=== PATIENT | female | born 1945 | race Caucasian/White ===

== ENCOUNTER → 2017-03-02 | Outpatient (CLI) | payer MEDICARE, BC ==
[~2017-03-02] MED LIST: FLEXERIL10 MG PO; NAPROSYN500 MG PO; PRILOSEC20 M1 PO
--- NOTE | ~2017-03-02 | CT57 ---
[facility] A Service of [facility] & [facility] RADIOLOGY TEXT RESULTS PATIENT: INDIA MICHAELS LOCATION: [facility] : 47 UNIT #: [id number] AGE: [address]: Robert Borges MD SEX: F ORDER DR: [id number] [facility] [address] [place], [place] [address] [id number] O MR#: [id number] Acc #: [id number] NAME: INDIA MICHAELS : 1945 SEX: F STUDY DATE/TIME: 03/02/2017 13:00 UNIT: [facility] ROOM: STUDY DESCRIPTION: CT Chest Wo Cont Attending Physician: Robert Borges M.D. Referring Physician: Robert Borges M.D. Ordering Physician: Robert Borges M.D. Primary Care Physician: Fernando Santiago M.D. MEDICAL IMAGING REPORT This report is preliminary unless electronic signature is present EXAM CT of the chest without contrast INDICATION Chest pain and shortness of breath, COPD, followup pulmonary nodule. TECHNIQUE CT of the chest was performed without contrast. Coronal and sagittal reformatted images were obtained. Comparison of 09/01/2016 and 04/21/2016. This CT exam was performed with one or more of the following radiation dose reduction techniques: automatic exposure control, adjustment of mA and/or kV according to patient size, and iterative reconstruction. FINDINGS There is underlying emphysema. There is a stable tiny 4 mm nodule in the inferior aspect of the right upper lobe. There are curvilinear bands of scarring/atelectasis in the base of the right lung. No new nodules. No airspace consolidation. Stable thyroid nodules. Aberrant origin of the right subclavian artery. No lymphadenopathy. Coronary artery calcification. No pleural effusion. Limited imaging of the upper abdomen demonstrates a stable hemangioma in the liver as well as a cholecystectomy. There is a partially imaged 3.6 cm infrarenal abdominal aortic aneurysm. This aneurysm was not imaged on the previous chest CTs. I would recommend consultation with vascular surgery unless the patient is already being followed by vascular surgery for her aneurysm elsewhere. IMPRESSION 1. Stable emphysema and tiny pulmonary nodule. 2. Limited imaging the upper abdomen demonstrates a partially imaged aortic aneurysm measuring 3.6 cm in greatest AP dimension. The aneurysm was not imaged on the previous chest CTs. Recommend [facility] A Service of [facility] & [facility] RADIOLOGY TEXT RESULTS PATIENT: INDIA MICHAELS LOCATION: [facility] : 47 UNIT #: [id number] AGE: [address]: Robert Borges MD SEX: F ORDER DR: consultation with vascular surgery unless the patient is already being followed elsewhere for the aortic aneurysm. Dictated by... Vernon Dai M.D. THIS IS AN ELECTRONICALLY VERIFIED REPORT Vernon Dai M.D. at 03/03/2017 7:45 AM HENRY/ivan TD: 03/02/2017 21:35 JOB #: [id number] MEDICAL IMAGING REPORT Page 1 of 1 COPY
== END | disposition home or self-care (01) ==
LOC: CCAT 12:17
DX: R91.1 Solitary pulmonary nodule (principal); J43.9 Emphysema, unspecified; I71.4 Abdominal aortic aneurysm, without rupture
CPT/HCPCS: 71250

== ENCOUNTER → 2017-04-02 | Outpatient (CLI) | payer MEDICARE, BC ==
--- NOTE | ~2017-04-02 | CT4 ---
[facility] A Service of [facility] & [facility] RADIOLOGY TEXT RESULTS PATIENT: INDIA MICHAELS [facility] : 47 UNIT #: [id number] AGE: [address]: Katherine Perez MD SEX: F ORDER DR: [id number] [facility] [address] [place], [place] [address] [id number] O MR#: [id number] [facility] #: [id number] NAME: INDIA MICHAELS : 1945 SEX: F STUDY DATE/TIME: 04/02/2017 13:55 UNIT: [facility] ROOM: STUDY DESCRIPTION: CT Abd and Pelv Wo Cont Attending Physician: Katherine Perez M.D. Ordering Physician: Katherine Perez M.D. Primary Care Physician: Fernando Santiago M.D. MEDICAL IMAGING REPORT This report is preliminary unless electronic signature is present EXAM CT of abdomen and pelvis. INDICATIONS Abdominal aortic aneurysm. Abnormal chest CT. TECHNIQUE CT of the abdomen and pelvis without contrast. This CT exam was performed with one or more of the following radiation dose reduction techniques: automatic exposure control, adjustment of mA and/or kV according to patient size, and iterative reconstruction. COMPARISON CT abdomen dated 01/21/2009. FINDINGS ABDOMEN: The infrarenal abdominal aorta measures up to 3.6 cm. The aneurysm is fairly short length measuring up to 4.2 cm. The aorta measures 2 cm at the level of the renal arteries. The aneurysm originates approximately 1 cm from the left renal artery. The aorta tapers to a normal caliber 5 cm prior to the aortic bifurcation. The distal aorta measures 1.7 cm. Both common iliac arteries are normal in size. Noncontrast evaluation of the liver demonstrates a 2 cm lesion in the posterior right hepatic lobe. This is unchanged from a 2008 comparison and is felt represent benign hemangioma. The gallbladder is surgically absent. The remaining solid abdominal organs are within normal limits on this noncontrasted study. No renal calculi. The bowel is not dilated. There is no enlarged retroperitoneal or mesenteric lymph nodes. The appendix is not clearly identified. No inflammatory stranding adjacent to the cecum. [facility] A Service of [facility] & [facility] RADIOLOGY TEXT RESULTS PATIENT: INDIA MICHAELS LOCATION: [facility] : 47 UNIT #: [id number] AGE: [address]: Katherine Perez MD SEX: F ORDER DR: PELVIS: No pelvic mass. Uterus is surgically absent. The ovaries are grossly normal. The bladder is unremarkable. No acute osseous abnormalities. IMPRESSION 1. Short segment aneurysm with a somewhat saccular configuration of the infrarenal abdominal aorta measuring up to 3.6 cm. Size measurements of the aorta are provided in the above report. Dictated by... Hany Olivares M.D. THIS IS AN ELECTRONICALLY VERIFIED REPORT Hany Olivares M.D. at 04/05/2017 3:00 PM TING/naresh TD: 04/02/2017 21:59 JOB #: [id number] MEDICAL IMAGING REPORT Page 1 of 1 COPY
[2017-04-02 16:26] LABS: POC - CREATININE 0.67 mg/dL (0.44-1.03); POC - GFR >60.0 mL/min (>60)
== END | disposition home or self-care (01) ==
LOC: CCAT 13:00
PROVIDERS: Internal Medicine Cardiovascular Disease
DX: I71.4 Abdominal aortic aneurysm, without rupture (principal)
CPT/HCPCS: 74176; 82565